=== PATIENT | male | born 1970 ===

== ENCOUNTER 2017-11-06 05:55 | Day surgery (SDC) | payer OTHER ==
[~2017-11-06 05:55] MED LIST: [UNRECOGNIZED DRUG - OTHER] PO
[2017-11-06] MEDS ORDERED: PERCOCET 5-3251 EACH PO (11:08)
[2017-11-06] MEDS ORDERED: POLY119PG PO (11:08)
== END 2017-11-06 13:20 | disposition home or self-care (01) ==
LOC: CIR.AMB 05:55 → EDSTATUS 07:15 → CIR.AMB 07:15
DX: K40.90 Unilateral inguinal hernia, without obstruction or gangrene, not specified as recurrent (principal); K43.9 Ventral hernia without obstruction or gangrene; K42.9 Umbilical hernia without obstruction or gangrene